=== PATIENT | female | born 1980 ===

== ENCOUNTER 2019-02-17 11:57 | Outpatient (CLI) | payer OTHER ==
[~2019-02-17] VITALS: Ht 152.4 cm; Wt 50.3 kg
== END 2019-02-17 12:15 | disposition home or self-care (01) ==
LOC: OFIC 805 11:57
DX: J31.0 Chronic rhinitis (principal); H69.83 Other specified disorders of Eustachian tube, bilateral

== ENCOUNTER 2019-02-23 09:12 | Outpatient (CLI) | payer OTHER ==
[~2019-02-23] VITALS: Ht 152.4 cm; Wt 50.3 kg
== END 2019-02-23 09:30 | disposition home or self-care (01) ==
LOC: OFIC 805 09:12
DX: J32.8 Other chronic sinusitis (principal); H66.93 Otitis media, unspecified, bilateral; R09.81 Nasal congestion

== ENCOUNTER 2019-09-04 11:51 | Outpatient (CLI) | payer OTHER ==
[~2019-09-04] VITALS: Ht 152.4 cm; Wt 52.2 kg
== END 2019-09-04 13:38 | disposition home or self-care (01) ==
LOC: OFIC 805 11:51
DX: H91.8X2 Other specified hearing loss, left ear (principal); R49.0 Dysphonia

== ENCOUNTER 2020-09-18 12:31 | Outpatient (CLI) | payer OTHER | END 2020-09-18 13:50 | disposition home or self-care (01) | LOC: OFIC 805 12:31 | PROVIDERS: ATTEND Otolaryngology Otology & Neurotology | DX: J31.0 Chronic rhinitis (principal); H90.42 Sensorineural hearing loss, unilateral, left ear, with unrestricted hearing on the contralateral side; J32.8 Other chronic sinusitis; R09.81 Nasal congestion; H69.83 Other specified disorders of Eustachian tube, bilateral ==

== ENCOUNTER 2020-11-20 13:04 | Outpatient (CLI) | payer OTHER | END 2020-11-20 13:51 | disposition home or self-care (01) | LOC: OFIC 805 13:04 → EDBD 13:04 → OFIC 805 13:51 | PROVIDERS: ATTEND Otolaryngology Otology & Neurotology | DX: R05 Cough (principal); R49.0 Dysphonia; H69.83 Other specified disorders of Eustachian tube, bilateral; J31.0 Chronic rhinitis ==

== ENCOUNTER → 2020-12-11 | Outpatient (CLI) | payer OTHER | END | disposition home or self-care (01) | LOC: TOM 11:52 | PROVIDERS: ATTEND Obstetrics & Gynecology Maternal & Fetal Medicine | DX: K57.32 Diverticulitis of large intestine without perforation or abscess without bleeding (principal); R10.32 Left lower quadrant pain ==